=== PATIENT | female | born 1960 | race African-American/Black ===

== ENCOUNTER 2024-11-14 13:22 | Outpatient (CLI) | payer OTHER, SELFPAY | END 2024-11-14 13:23 | disposition home or self-care (01) | PROVIDERS: PCP Orthopaedic Surgery; Visit Provider Family Medicine | DX: M25.562 Pain in left knee (principal); M25.561 Pain in right knee; Z98.890 Other specified postprocedural states | CPT/HCPCS: 73562 ==